=== PATIENT | female | born 1945 | race Two or more races ===

== ENCOUNTER 2017-12-09 08:57 | Outpatient (CLI) | payer OTHER ==
[~2017-12-09 08:57] MED LIST: ZOCOR20 MG PO
== END 2017-12-09 09:14 | disposition home or self-care (01) ==
LOC: MRI 08:57
DX: S93.491A Sprain of other ligament of right ankle, initial encounter (principal)
CPT/HCPCS: 73718

== ENCOUNTER 2022-08-24 15:10 | Outpatient (CLI) | payer OTHER | END 2022-08-24 15:45 | disposition home or self-care (01) | LOC: ASH CLINIC 15:10 | PROVIDERS: ATTEND Physical Medicine & Rehabilitation | DX: U07.1 COVID-19 (principal) ==

== ENCOUNTER 2025-08-20 08:17 | Emergency (ER) | payer OTHER ==
[~2025-08-20] VITALS: Ht 152.4 cm; Wt 49.0 kg
[2025-08-20] MEDS ORDERED: ROSUVASTATIN CA20 MG PO (08:47)
[2025-08-20] MEDS ORDERED: METOPROLOL SUCC25 MG PO (08:48)
[2025-08-20] MEDS ORDERED: ONDANSETRON HCL 2 MG/ML VIAL ONE (09:29)
[2025-08-20] MEDS ORDERED: FAMOtidine 10 MG/ML (4ML VIAL) IV PUSH ONE (09:30)
[2025-08-20] MEDS ORDERED: FAMOTIDINE/PF 20 MG/2 ML VIAL ONE (09:30)
[2025-08-20] MEDS ORDERED: ONDANSETRON HCL 2 MG/ML VIAL IV ONE (09:30)
[2025-08-20] MEDS ORDERED: 0.9 % SODIUM CHLORIDE 1,000 ML IV ONE (09:30)
[2025-08-20] MEDS ORDERED: BARIUM SULFATE 450 ML ORAL.SUSP PO ONE (10:06)
[2025-08-20 10:10] LABS: BASO % 0.2 % (0.1-1.2); EOS # 0.47 (0.04-0.54); EOS % 4.1 % (0.7-7.0); LYMPH # 1.34 (1.18-3.74); LYMPH % 11.7 % (19.3-53.1); MEAN PLATELET VOLUME 9.30 fl (9.4-12.4); MONO # 1.08 (0.24-0.82); MONO % 9.5 % (4.7-12.5); NEUT # 8.49 (1.56-6.13); NEUT % 74.3 % (34.0-71.1); RED CELL DISTRIBUTION WIDTH 12.8 % (11.6-14.4)
[2025-08-20 10:42] LABS: ALT/SGPT 15.0 U/L (12-78); AST/SGOT 15.0 U/L (15-37); BILIRUBIN TOTAL 0.72 mg/dL (0.3-1.2); BUN CREA RATIO 9.0 (7.0-25.0); CREATININE SERUM 0.64 mg/dL (0.55-1.02); GFR 89.28; GLOBULINA 4.0 G/DL (2.4-3.5); GLUCOSE FASTING 102.0 mg/dL (65-100); OSMOLALITY SERUM 272.0 MOSM/KG (275-295)
[2025-08-20 11:22] LABS: URINE APPEARANCE Clear; URINE BILIRRUBIN Negative (NEGATIVE); URINE BLOOD Moderate; URINE COLOR Yellow; URINE GLUCOSE Negative (NEGATIVE); URINE KETONE Negative (NEGATIVE); URINE LEUKOCYTE Negative; URINE NITRATE Negative; URINE PROTEIN Negative (NEGATIVE); URINE UROBILINOGEN 0.2 E.U./dl
[2025-08-20 11:28] LABS: URINE BACTERIA 15.5 uL (0.0-1933); URINE EPITHELIAL CELLS 5.5 uL (0.0-38.8); URINE RBC 51.0 uL (0.0-20.8); URINE WBC 4.7 uL (0.0-23.2)
[2025-08-20 11:38] LABS: URINE CAST 0.00 uL (0.0-1.40)
[2025-08-20] MEDS ORDERED: PIPERACILLIN/TAZOBACTAM SODIUM 3.375 GM VIAL IV ONE ×2 (12:45→12:56)
== END 2025-08-20 15:48 | disposition home or self-care (01) ==
LOC: ER 08:18
PROVIDERS: General Practice
DX: A09 Infectious gastroenteritis and colitis, unspecified (principal); R10.9 Unspecified abdominal pain; Z91.041 Radiographic dye allergy status
CPT/HCPCS: 36415; 74177; 96365; 96366; 99284; J1885; J2405; J2543; J7030; Q9965